=== PATIENT | male | born 1990 | race Caucasian/White ===

== ENCOUNTER 2017-09-06 17:12 | Emergency (ER) | payer SELFPAY ==
[~2017-09-06] VITALS: Ht 180.3 cm; Wt 99.7 kg
[2017-09-06 17:16] VITALS: BP 119/60
[2017-09-06] MEDS ORDERED: PERCOCET 5/31 TABLET PO (17:54)
[2017-09-06] MEDS ORDERED: PEN-VEE K,VEET500 MG PO (17:54)
[2017-09-06] MEDS ORDERED: MOTRIN800 MG PO (17:54)
== END 2017-09-06 18:25 | disposition home or self-care (01) ==
LOC: EME 17:12
DX: K08.89 Other specified disorders of teeth and supporting structures (principal)
CPT/HCPCS: 99281; 99284